=== PATIENT | male | born 1950 | race Caucasian/White ===

== ENCOUNTER 2021-09-25 14:17 | Outpatient (CLI) | payer MEDICARE, OTHER ==
[~2021-09-25 14:17] MED LIST: Magnevist 469MG/ML 20 ML VIAL ONE
== END 2021-09-25 14:18 | disposition home or self-care (01) ==
LOC: CSHMRI 14:17
PROVIDERS: ATTEND Nurse Practitioner Family
DX: M48.062 Spinal stenosis, lumbar region with neurogenic claudication (principal); G03.9 Meningitis, unspecified; M48.061 Spinal stenosis, lumbar region without neurogenic claudication; Z98.890 Other specified postprocedural states; M51.26 Other intervertebral disc displacement, lumbar region
CPT/HCPCS: 72158; 82565

== ENCOUNTER 2022-03-08 10:55 | Emergency (ER) | payer MEDICARE, OTHER | END 2022-03-08 12:40 | disposition home or self-care (01) | LOC: CSHERS 10:55 | DX: I82.401 Acute embolism and thrombosis of unspecified deep veins of right lower extremity (principal); K21.9 Gastro-esophageal reflux disease without esophagitis; E78.5 Hyperlipidemia, unspecified; I10 Essential (primary) hypertension; Z87.891 Personal history of nicotine dependence ==

== ENCOUNTER → 2022-09-13 | Day surgery (SDC) | payer MEDICARE, OTHER ==
[~2022-09-13] MED LIST changes: +Fentanyl 100 MCG/2 ML VIAL ONE; +Heparin 10,000 UNITS/ 10 ML VIAL ONE; +Iopamidol 300 61% 100 ML VIAL FS ONE; +Lidocaine 1% (PF) 30 ML VIAL ONE; -Magnevist 469MG/ML 20 ML VIAL ONE; +Midazolam HCl 2 mg/2 ml Vial ONE; +hydrALAZINE 20 MG/ML VIAL ONE
[2022-09-13 09:03] VITALS: BP 180/96; TEMP 97.8; BMI 40.6
[2022-09-13 09:16] LABS: #Eosinphils 0.3 10x3/uL (0.0-0.5); #Monocytes 0.6 10x3/uL (0.0-1.1); %Basophils 0.3 % (0.0-2.0); %Eosinophils 4.7 % (0.0-6.0); %Lymphocytes 26.5 % (18.0-47.0); %Neutrophils 59.4 % (40.0-75.0); Hemoglobin 14.5 g/dL (13.5-17.5); Mean Corpuscular HGB CONC 32.5 g/dL (32.0-36.0); Mean Corpuscular Hemoglobin 29.7 pg (27.0-33.0); Mean Corpuscular Volume 91.4 fl (81.2-95.1); Mean Platelet Volume 12.1 fl (7.4-10.4); Platelet Count 161 10x3/uL (150-450); RBC Distribution Width 12.5 % (11.5-14.5); Red Blood Cell (RBC) Count 4.88 10x6/uL (4.32-5.72); White Blood Cell (WBC) Count 6.8 10x3/uL (3.5-10.5)
[2022-09-13 09:25] LABS: Prothrombin Time 11.2 sec (9.5-12.1)
== END ==
LOC: CSHSDC 07:22
PROVIDERS: ATTEND Specialist
DX: I82.401 Acute embolism and thrombosis of unspecified deep veins of right lower extremity (principal); Z88.8 Allergy status to other drugs, medicaments and biological substances; Z79.899 Other long term (current) drug therapy
CPT/HCPCS: 37191; 85025; 85610; 85730; C1760; C1769; C1880; J0360; 99152; J1644; J2001; J2250; J3010; Q9967

== ENCOUNTER 2022-10-08 14:15 | Outpatient (CLI) | payer MEDICARE, OTHER | END 2022-10-08 14:16 | disposition home or self-care (01) | LOC: CSHCT 14:15 | PROVIDERS: ATTEND Surgery | DX: G91.9 Hydrocephalus, unspecified (principal); G93.89 Other specified disorders of brain | CPT/HCPCS: 70450 ==

== ENCOUNTER 2022-10-15 12:14 | Outpatient (CLI) | payer MEDICARE, OTHER | END 2022-10-15 12:15 | disposition home or self-care (01) | LOC: CSHCT 12:14 | PROVIDERS: ATTEND Surgery | DX: G91.9 Hydrocephalus, unspecified (principal); Z98.2 Presence of cerebrospinal fluid drainage device | CPT/HCPCS: 70450 ==

== ENCOUNTER 2022-11-13 09:54 | Outpatient (CLI) | payer MEDICARE, OTHER | END 2022-11-13 09:55 | disposition home or self-care (01) | LOC: CSHCT 09:54 | PROVIDERS: ATTEND Surgery | DX: G91.9 Hydrocephalus, unspecified (principal); Z98.2 Presence of cerebrospinal fluid drainage device | CPT/HCPCS: 70450 ==

== ENCOUNTER 2023-08-11 09:09 | Inpatient (IN) | payer MEDICARE, OTHER ==
[2023-08-11 09:27] VITALS: BMI 40.2
[2023-08-11] MEDS ORDERED: Ondansetron ODT 4 MG TAB PO PRN (10:03)
[2023-08-11] MEDS ORDERED: Ondansetron PF 4 MG/2 ML Vial IVP PRN (10:03)
[2023-08-11] MEDS ORDERED: Acetaminophen 650 MG Suppository PR PRN (10:03)
[2023-08-11] MEDS ORDERED: Senokot S 8.6-50 MG TAB PO PRN (10:03)
[2023-08-11] MEDS ORDERED: Acetaminophen 325 MG TAB PO PRN (10:03)
[2023-08-11] MEDS ORDERED: Morphine 4 MG/ML VIAL SLOW IVP PRN (10:07)
[2023-08-11] MEDS ORDERED: Morphine 2 MG/ML VIAL SLOW IVP PRN (10:07)
[2023-08-11] MEDS ORDERED: Heparin 25,000 units/D5W 500 ML IVPB SCH (10:15)
[2023-08-11] MEDS ORDERED: Heparin 10,000 UNITS/ 10 ML VIAL SLOW IVP SCH ×2 (10:15)
[2023-08-11] MEDS ORDERED: Heparin 25,000 units/D5W 500 ML IV SCH (10:15)
[2023-08-11 10:43] LABS: Hematocrit 47.2 % (38.8-50.0); Hemoglobin 16.4 g/dL (13.5-17.5); Platelet Count 170 10x3/uL (150-450)
[2023-08-11] MEDS ORDERED: hydrALAZINE 20 MG/ML VIAL SLOW IVP PRN (10:45)
[2023-08-11] MEDS ORDERED: Iopamidol 300 61% 100 ML VIAL FS ONE (11:27)
[2023-08-11] MEDS ORDERED: Communication Order-Pharmacy FS SCH (11:30)
[2023-08-11] MEDS: dilTIAZem CD 240 MG CAP PO SCH (11:37)
[2023-08-11] MEDS: Carvedilol 25 MG TAB PO SCH ×2 (11:39→21:04)
[2023-08-11] MEDS: Valsartan 80 MG TAB PO SCH (11:39)
[2023-08-11] MEDS ORDERED: Adenosine 6 mg (2 mL) VIAL ONE (11:56)
[2023-08-11] MEDS ORDERED: Heparin 10,000 UNITS/ 10 ML VIAL ONE (11:56)
[2023-08-11] MEDS ORDERED: Verapamil 5 MG/2 ML VIAL ONE (11:56)
[2023-08-11] MEDS ORDERED: Nitroglycerin 50 MG/250 ML BOT 250 ML ONE (11:56)
[2023-08-11] MEDS ORDERED: Lidocaine 1% PF 5 ML VIAL ONE (11:57)
[2023-08-11 12:29] LABS: PTT 26.6 sec (22.0-33.0); Prothrombin Time 11.1 sec (9.5-12.1)
[2023-08-11 12:34] LABS: Troponin I 0.138 ng/mL (< 0.028)
[2023-08-11] MEDS ORDERED: Midazolam HCl 2 mg/2 ml Vial ONE (12:47)
[2023-08-11] MEDS ORDERED: fentaNYL 50 mcg/mL 1 mL Vial ONE (12:47)
[2023-08-11] MEDS ORDERED: Nitroglycerin 0.4 MG TAB (25 Tab Bottle) SL PRN (14:11)
[2023-08-11] MEDS ORDERED: Sodium Chloride 0.9% 200 ML IV PRN (14:11)
[2023-08-11] MEDS ORDERED: Acetaminophen/Codeine 30-300mg Tablet PO PRN ×2 (14:11)
[2023-08-11 16:55] LABS: Troponin I 0.127 ng/mL (< 0.028)
[2023-08-11] MEDS ORDERED: Atorvastatin Calcium 10 MG TAB PO SCH (21:00)
[2023-08-11] MEDS ORDERED: VIT C PO SCH (21:00)
[2023-08-11] MEDS ORDERED: ZINC PO SCH (21:00)
[2023-08-11] MEDS ORDERED: [UNRECOGNIZED DRUG - OTHER] PO SCH (21:00)
[2023-08-11] MEDS ORDERED: VIT A PO SCH (21:00)
[2023-08-11] MEDS ORDERED: COPPER PO SCH (21:00)
[2023-08-11] MEDS ORDERED: VIT E PO SCH (21:00)
[2023-08-11] MEDS: Amiodarone 200 MG TAB PO SCH (21:04)
[2023-08-11] MEDS: Apixaban 5 MG TAB PO SCH (21:04)
[2023-08-11] MEDS: Atorvastatin Calcium 40 MG TAB PO SCH (21:04)
[2023-08-11] MEDS: Doxazosin 2 MG TAB PO SCH (21:05)
[2023-08-12 05:15] LABS: #Eosinphils 0.2 10x3/uL (0.0-0.5); #Monocytes 0.8 10x3/uL (0.0-1.1); #Neutrophils 7.5 10x3/uL (1.5-8.4); %Basophils 0.2 % (0.0-2.0); %Eosinophils 2.2 % (0.0-6.0); %Lymphocytes 15.4 % (18.0-47.0); %Monocytes 8.2 % (0.0-10.0); %Neutrophils 73.7 % (40.0-75.0); Hematocrit 46.2 % (38.8-50.0); Hemoglobin 15.4 g/dL (13.5-17.5); Mean Corpuscular HGB CONC 33.3 g/dL (32.0-36.0); Mean Corpuscular Hemoglobin 29.4 pg (27.0-33.0); Mean Corpuscular Volume 88.2 fl (81.2-95.1); Mean Platelet Volume 11.2 fl (7.4-10.4); Platelet Count 153 10x3/uL (150-450); RBC Distribution Width 13.2 % (11.5-14.5); Red Blood Cell (RBC) Count 5.24 10x6/uL (4.32-5.72); White Blood Cell (WBC) Count 10.1 10x3/uL (3.5-10.5)
[2023-08-12 05:25] LABS: Anion Gap 12 mmol/L (10-20); BUN (Urea Nitrogen) 17 mg/dL (8.4-25.7); Calc. Creatinine Clearance 115 mL/min (70-130); Calcium 8.9 mg/dL (7.8-10.44); Carbon Dioxide 27 mmol/L (23-31); Chloride 107 mmol/L (98-107); Estimated GFR 78; Glucose 117 mg/dL (83-110); Potassium 3.3 mmol/L (3.5-5.1); Sodium 143 mmol/L (136-145)
[2023-08-12] MEDS: Valsartan 80 MG TAB PO SCH (09:20)
[2023-08-12] MEDS: dilTIAZem CD 240 MG CAP PO SCH (09:21)
[2023-08-12] MEDS: Aspirin Chewable 81 MG TAB PO SCH (09:22)
[2023-08-12] MEDS: Isosorbide Mononitrate 30 MG ER.TAB PO SCH (09:22)
[2023-08-12] MEDS: Potassium Chloride 20 MEQ TAB PO SCH (09:23)
[2023-08-12] MEDS: Loratadine 10 MG TAB PO SCH (09:23)
[2023-08-12] MEDS: TRIAMTERENE PO SCH (09:49)
[2023-08-12] MEDS: HYDROCHLOROTHIAZIDE PO SCH (09:49)
[2023-08-12] MEDS: Dronedarone HCl 400 MG TAB PO SCH (10:40)
[2023-08-12 12:32] VITALS: BP 126/62; TEMP 98
[2023-08-12] MEDS ORDERED: Dronedarone HCl 400 MG TAB PO SCH (17:00)
== END 2023-08-12 12:15 | disposition home or self-care (01) | DRG 287 ==
LOC: CSHTELE 09:09
PROVIDERS: ADMIT Family Medicine; ATTEND Internal Medicine
PROC: B2111ZZ Fluoroscopy of Multiple Coronary Arteries using Low Osmolar Contrast (ICD-10-PCS; principal; 2023-08-11)
PROC: 4A023N7 Measurement of Cardiac Sampling and Pressure, Left Heart, Percutaneous Approach (ICD-10-PCS; 2023-08-11)
PROC: B2151ZZ Fluoroscopy of Left Heart using Low Osmolar Contrast (ICD-10-PCS; 2023-08-11)
DX: I25.119 Atherosclerotic heart disease of native coronary artery with unspecified angina pectoris (principal); E78.5 Hyperlipidemia, unspecified; I48.0 Paroxysmal atrial fibrillation; I10 Essential (primary) hypertension; I48.91 Unspecified atrial fibrillation; K21.9 Gastro-esophageal reflux disease without esophagitis; R79.89 Other specified abnormal findings of blood chemistry; H40.9 Unspecified glaucoma; Z98.49 Cataract extraction status, unspecified eye; Z79.899 Other long term (current) drug therapy; Z98.890 Other specified postprocedural states; Z90.79 Acquired absence of other genital organ(s); Z87.891 Personal history of nicotine dependence; Z80.3 Family history of malignant neoplasm of breast
CPT/HCPCS: 36415; 80048; 84443; 85025; 92978; 92979; 93005; 93010; 93458; 94760; 94762; 99152; 99153; C1753; C1769; C1887; C1894; J0153; J1644; J2250; J3010; Q9967

== ENCOUNTER 2024-05-05 10:08 | Outpatient (CLI) | payer MEDICARE, OTHER | END 2024-05-05 10:09 | disposition home or self-care (01) | LOC: CSHULT 10:08 | PROVIDERS: ATTEND Nurse Practitioner Family | DX: L03.114 Cellulitis of left upper limb (principal) ==

== ENCOUNTER 2024-06-08 09:50 | Outpatient (CLI) | payer MEDICARE, OTHER | END 2024-06-08 09:51 | disposition home or self-care (01) | LOC: CSHCT 09:50 | PROVIDERS: ATTEND Family Medicine | DX: Z12.2 Encounter for screening for malignant neoplasm of respiratory organs (principal); Z87.891 Personal history of nicotine dependence; E04.1 Nontoxic single thyroid nodule; E07.9 Disorder of thyroid, unspecified; I25.10 Atherosclerotic heart disease of native coronary artery without angina pectoris; I25.84 Coronary atherosclerosis due to calcified coronary lesion; I51.7 Cardiomegaly; M85.9 Disorder of bone density and structure, unspecified | CPT/HCPCS: 71271 ==